=== PATIENT | female | born 1985 | race Caucasian/White ===

== ENCOUNTER 2017-01-30 07:26 | Emergency (ER) | payer OTHER ==
--- NOTE | 2017-01-30 07:44 | UCPHY ---
H & P Time Seen by Provider: 01/30/17 07:44 Patient Type: Established HPI/ROS: CHIEF COMPLAINT: Vomiting today HISTORY OF PRESENT ILLNESS: Patient has had no bowel movement for the last week. She feels constipated. She tried fiber pills and glycerin suppository and now has some diffuse abdominal discomfort just above her umbilicus. She threw up last night and today in the morning. No blood or coffee grounds in the emesis. No diarrhea. Symptoms not associated with nausea currently. No change with eating or drinking or ambulation. REVIEW OF SYSTEMS: Eye: no change in vision ENT: Currently on her 6th day of oral prednisone for congestion and allergies which is are improving. Cardiac: no chest pain or syncope Pulmonary: no cough or SOB Abdomen: HPI Musculoskeletal: no back pain Skin: no rash Neuro: no headache Constitutional: no fever : no urinary symptoms, no vaginal bleeding or discharge A comprehensive 10 point review of systems is otherwise negative aside from elements mentioned in the history of present illness. PAST MEDICAL HISTORY: Includes appendectomy, right oophorectomy Social history: Primary care in [facility] General Appearance: Alert and conversant, cooperative. Appears comfortable. Eyes: No scleral icterus. ENT, Mouth: Normal mucous membranes. Respiratory: Normal respiratory effort, breath sounds equal, lungs are clear to auscultation. Cardiovascular: Regular rate and rhythm. Gastrointestinal: Abdomen is soft and non tender. Normal bowel sounds, not distended, no Meadows sign. No rebound or guarding. Neurological: Alert and oriented x3. Normally conversant. Face symmetric, normal movement and sensation in all extremities. Skin: Warm and dry, no rashes. Musculoskeletal: No peripheral edema and no joint swelling. Psychiatric: Not agitated. Emergency Department course/MDM: Plan for urine , KUB. If KUB consistent with constipation discharge with symptomatic treatment. 835: Results discussed, plan for [id number] constipation treatment. Think this is much more likely than mechanical bowel obstruction or pancreatitis or gallbladder disease or acute surgical abdominal process. Ectopic unlikely with negative test. Smoking Status: Never smoked Constitutional: Initial Vital Signs Temperature (C) 36.7 C 01/30/17 07:38 Heart Rate 88 01/30/17 07:38 Respiratory Rate 16 01/30/17 07:38 Blood Pressure 119/79 01/30/17 07:38 O2 Delivery Mode Room Air Allergies/Adverse Reactions: Penicillins Allergy (Verified 01/30/17 07:44) Home Medications: Medication Instructions Recorded LEVOTHYROXINE SODIUM [Tirosint 50 mcg PO 04/11/13 50mcg] [id number]/Sod Sulf,Bicarb,Cl/KCl 1 each PO AD #1 powd.pack 01/30/17 [Golytely Packet] Prednisone 01/30/17 Medical Decision Making - Data Points Laboratory Results: 01/30/17 08:00 Urine Test NEGATIVE Departure - Departure Disposition: Home, Routine, Self-Care Clinical Impression: Abdominal pain Qualifiers: Abdominal location: generalized Qualified Code(s): R10.84 - Generalized abdominal pain Constipation Qualifiers: Constipation type: unspecified constipation type Qualified Code(s): K59.00 - Constipation, unspecified Condition: Good Instructions: Acute Abdominal Pain (ED) Additional Instructions: You can use any of these OTC options: Dulcolax orallyk, Miralax orally, Magnesium Citrate orally, Fleet's enema rectally. If none of these work: can try prescription for GoLytely; only drink 1 or 2 8oz glasses; stop if you have a bowel movement. Return immediately for vomiting or worsening or severe abdominal pain. Referrals: MIGUELITO MENCHACA [Other] - As per Instructions CHELO GEIGER [Outside Referral Agency] - As per Instructions Prescriptions: [id number]/Sod Sulf,Bicarb,Cl/KCl [Golytely Packet] 1 each PO AD #1 powd.pack - PQRS PQRS Measurement: n/a
[2017-01-30 07:47] VITALS: BP 119/79; PULSE 88; RESP 16; TEMP 98.1
== END 2017-01-30 08:48 | disposition home or self-care (01) ==
LOC: CED 07:26
DX: K59.00 Constipation, unspecified (principal); R10.84 Generalized abdominal pain
CPT/HCPCS: 74000-PO; 81025-PO; 99214-PO; G0463-PO